=== PATIENT | female | born 1960 | race African-American/Black ===

== ENCOUNTER 2021-10-07 04:30 | Inpatient (IN) | payer MEDICAID, OTHER ==
[~2021-10-07] VITALS: Ht 157.5 cm; Wt 138.0 kg
[2021-10-07 05:11] LABS: Basophils # (auto) 0.1 10 ^3/uL (0-0.2); Basophils % (auto) 1.7 % (0.0-2.0); Eosinophils # (auto) 0.1 10 ^3/uL (0-0.8); Eosinophils % (auto) 1.7 % (0.0-7.0); Hematocrit 49.5 % (36.0-46.0); Hemoglobin 16.8 g/dL (12.2-16.2); Lymphocytes # (auto) 1.1 10 ^3/uL (0.4-5.4); Lymphocytes % (auto) 28.4 % (10.0-50.0); Mean Corpuscular Hemoglobin 29.5 pg (28.0-32.0); Mean Corpuscular Hgb Conc. 33.9 g/dL (32.0-36.0); Mean Corpuscular Volume 86.8 fL (80.0-100.0); Monocytes # (auto) 0.5 10 ^3/uL (0-1.3); Monocytes % (auto) 11.4 % (0.0-12.0); Neutrophils # (auto) 2.3 10 ^3/uL (1.6-8.6); Neutrophils % (auto) 56.8 % (37.0-80.0); Nucleated Red Blood Cells % 0.2 %; Red Blood Cells 5.71 10^6/uL (4.0-5.20)
[2021-10-07 05:27] LABS: INR 1.21 (0.9-1.15); Partial Thromboplastin Time 30.5 sec (23.6-33.0)
[2021-10-07 05:31] LABS: Albumin 3.5 g/dL (3.4-5.0); Calcium 9.2 mg/dL (8.5-10.1); Potassium 3.6 mmol/L (3.5-5.1)
[2021-10-07 05:34] LABS: Bilirubin, Total 0.7 mg/dL (0.2-1.0); Total Protein 8.1 g/dL (6.4-8.2)
[2021-10-07] MEDS ORDERED: ASPirin 81 mg TAB PO ONE (06:00)
[2021-10-07] MEDS ORDERED: BENA40TA8 PO (09:28)
[2021-10-07] MEDS ORDERED: AMLO-496 PO (09:28)
[2021-10-07] MEDS ORDERED: PANT40T PO (09:28)
[2021-10-07] MEDS ORDERED: CLON0.3D4 PO (09:28)
[2021-10-07] MEDS ORDERED: CHLO25TA2 PO (09:28)
[2021-10-07] MEDS ORDERED: SPIR25TA8 PO (09:28)
[2021-10-07] MEDS ORDERED: MONT-8 PO (09:28)
[2021-10-07] MEDS ORDERED: AML5T PO (09:28)
[2021-10-07] MEDS ORDERED: IOHEXOL 350 MG/ML 100ML IJ ONE (09:46)
[2021-10-07] MEDS ORDERED: ENOXAPARIN SOD 150 MG/1 ML SYRINGE SC SCH (10:00)
[2021-10-07] MEDS ORDERED: NITROGLYCERIN 0.4 MG SL TAB SL ONE (10:00)
[2021-10-07] MEDS: IPRATROPIUM BROM 0.5 MG/2.5ML INH SOL NEB SCH ×2 (12:45→18:29)
[2021-10-07] MEDS: ALBUTEROL SULF 2.5 MG/0.5ML(0.5%) NEB SOLN NEB SCH ×2 (12:46→18:29)
[2021-10-07] MEDS ORDERED: MORPHINE SULFATE 4 MG/ML SYR/VIAL IV PRN (15:00)
[2021-10-07] MEDS ORDERED: ALBUTEROL SULF 2.5 MG/0.5ML(0.5%) NEB SOLN NEB PRN (15:15)
[2021-10-07] MEDS: ACETAMINOPHEN 500 MG TAB PO PRN (17:57)
[2021-10-07] MEDS ORDERED: RIVAROXABAN 20 MG TAB PO SCH (18:00)
[2021-10-07 18:36] LABS: Calcium 9.4 mg/dL (8.5-10.1); Potassium 3.5 mmol/L (3.5-5.1)
[2021-10-07] MEDS: FUROSEMIDE 40 MG/4 ML VIAL IV SCH (18:38)
[2021-10-07 18:42] LABS: BUN/Creatinine Ratio 10.4
[2021-10-07 20:40] VITALS: BP 144/83
[2021-10-07] MEDS: MONTELUKAST SODIUM 10 MG TAB PO SCH (21:05)
[2021-10-07] MEDS: cloNIDine HCL 0.1 MG TAB PO SCH (21:05)
[2021-10-07] MEDS: POTASSIUM CHL 10 Meq TABLET PO SCH (21:06)
[2021-10-07] MEDS: ATORVASTATIN 20 MG TAB PO SCH (21:06)
[2021-10-08] MEDS: ACETAMINOPHEN 500 MG TAB PO PRN (00:04)
[2021-10-08] MEDS: ALBUTEROL SULF 2.5 MG/0.5ML(0.5%) NEB SOLN NEB SCH ×4 (00:20→18:54)
[2021-10-08] MEDS: IPRATROPIUM BROM 0.5 MG/2.5ML INH SOL NEB SCH ×4 (00:21→18:54)
[2021-10-08] MEDS: MORPHINE SULFATE INJ 2 MG/ml SYRG IV PRN (03:53)
[2021-10-08 05:00] VITALS: BP 122/61
[2021-10-08] MEDS: FUROSEMIDE 40 MG/4 ML VIAL IV SCH ×2 (05:52→14:30)
[2021-10-08 08:30] VITALS: BP 152/85
[2021-10-08 09:00] VITALS: BP 152/85
[2021-10-08] MEDS: POTASSIUM CHL 10 Meq TABLET PO SCH ×2 (09:51→21:15)
[2021-10-08] MEDS: ASPirin-EC 81 mg tab PO SCH (09:51)
[2021-10-08] MEDS: PANTOPRAZOLE 40 MG TAB PO SCH (09:51)
[2021-10-08] MEDS: cloNIDine HCL 0.1 MG TAB PO SCH ×2 (09:52→21:14)
[2021-10-08] MEDS ORDERED: PNEUMOCOCCAL VACC POLYS 25 MCG/0.5 ML VIAL IM ONE (10:00)
[2021-10-08 12:44] VITALS: BP 153/88
[2021-10-08] MEDS: RIVAROXABAN 20 MG TAB PO SCH (12:50)
[2021-10-08] MEDS: SILDENAFIL CITRATE 20 MG TAB PO SCH ×2 (14:30→21:13)
[2021-10-08 16:36] VITALS: BP 137/79
[2021-10-08] MEDS: MONTELUKAST SODIUM 10 MG TAB PO SCH (21:13)
[2021-10-08] MEDS: ATORVASTATIN 20 MG TAB PO SCH (21:15)
[2021-10-08 22:00] VITALS: BP 144/100
[2021-10-09] VITALS (7 sets, daily range): BP systolic 120–134; BP diastolic 66–92
[2021-10-09] MEDS: ONDANSETRON HCL 4 MG/2 ML VIAL IV PRN (03:42)
[2021-10-09] MEDS: FUROSEMIDE 40 MG/4 ML VIAL IV SCH ×2 (06:44→13:38)
[2021-10-09] MEDS: MORPHINE SULFATE INJ 2 MG/ml SYRG IV PRN (06:44)
[2021-10-09] MEDS: IPRATROPIUM BROM 0.5 MG/2.5ML INH SOL NEB SCH ×4 (06:47→18:00)
[2021-10-09] MEDS: ALBUTEROL SULF 2.5 MG/0.5ML(0.5%) NEB SOLN NEB SCH ×4 (06:48→18:00)
[2021-10-09 07:53] LABS: Basophils # (auto) 0 10 ^3/uL (0-0.2); Lymphocytes # (auto) 1.3 10 ^3/uL (0.4-5.4); Monocytes # (auto) 0.8 10 ^3/uL (0-1.3); Neutrophils # (auto) 2.5 10 ^3/uL (1.6-8.6); Red Cell Distribution Width 16.2 % (11.8-14.3)
[2021-10-09 07:56] LABS: Eosinophils # (auto) 0.1 10 ^3/uL (0-0.8); Eosinophils % (auto) 1.4 % (0.0-7.0); Hematocrit 52.3 % (36.0-46.0); Hemoglobin 18.2 g/dL (12.2-16.2); Lymphocytes % (auto) 27.2 % (10.0-50.0); Mean Corpuscular Hemoglobin 30.5 pg (28.0-32.0); Mean Corpuscular Hgb Conc. 34.8 g/dL (32.0-36.0); Mean Corpuscular Volume 87.5 fL (80.0-100.0); Monocytes % (auto) 16.7 % (0.0-12.0); Neutrophils % (auto) 53.7 % (37.0-80.0); Nucleated Red Blood Cells % 0.3 %; Red Blood Cells 5.98 10^6/uL (4.0-5.20); White Blood Cell 4.7 10^3/uL (4.4-10.8)
[2021-10-09 08:18] LABS: BUN/Creatinine Ratio 19.4; Calcium 9.5 mg/dL (8.5-10.1); Potassium 3.9 mmol/L (3.5-5.1)
[2021-10-09] MEDS: SILDENAFIL CITRATE 20 MG TAB PO SCH ×2 (08:46→20:01)
[2021-10-09] MEDS: ASPirin-EC 81 mg tab PO SCH (12:22)
[2021-10-09] MEDS: PANTOPRAZOLE 40 MG TAB PO SCH (12:22)
[2021-10-09] MEDS: cloNIDine HCL 0.1 MG TAB PO SCH ×2 (12:23→21:34)
[2021-10-09] MEDS: POTASSIUM CHL 10 Meq TABLET PO SCH ×2 (12:23→21:34)
[2021-10-09] MEDS: TRIAMCINOLONE ACET 0.1% TOPICAL CREAM 15GM TOP PRN ×2 (12:27→20:53)
[2021-10-09] MEDS: RIVAROXABAN 20 MG TAB PO SCH (17:31)
[2021-10-09] MEDS: MONTELUKAST SODIUM 10 MG TAB PO SCH (20:01)
[2021-10-09] MEDS: ATORVASTATIN 20 MG TAB PO SCH (21:34)
[2021-10-10] VITALS (8 sets, daily range): BP systolic 108–128; BP diastolic 61–77
[2021-10-10] MEDS: MORPHINE SULFATE INJ 2 MG/ml SYRG IV PRN (01:56)
[2021-10-10] MEDS: FUROSEMIDE 40 MG/4 ML VIAL IV SCH ×2 (05:53→14:32)
[2021-10-10] MEDS: IPRATROPIUM BROM 0.5 MG/2.5ML INH SOL NEB SCH ×4 (06:15→19:12)
[2021-10-10] MEDS: ALBUTEROL SULF 2.5 MG/0.5ML(0.5%) NEB SOLN NEB SCH ×4 (06:15→19:12)
[2021-10-10] MEDS: SILDENAFIL CITRATE 20 MG TAB PO SCH ×2 (08:24→19:57)
[2021-10-10] MEDS: ASPirin-EC 81 mg tab PO SCH (08:25)
[2021-10-10] MEDS: PANTOPRAZOLE 40 MG TAB PO SCH (08:25)
[2021-10-10] MEDS: POTASSIUM CHL 10 Meq TABLET PO SCH ×2 (08:27→22:24)
[2021-10-10] MEDS: cloNIDine HCL 0.1 MG TAB PO SCH ×2 (11:10→22:24)
[2021-10-10] MEDS: RIVAROXABAN 20 MG TAB PO SCH (18:07)
[2021-10-10] MEDS: MONTELUKAST SODIUM 10 MG TAB PO SCH (19:57)
[2021-10-10] MEDS ORDERED: traZODone HCL 50 MG TAB PO SCH (22:00)
[2021-10-10] MEDS: ATORVASTATIN 20 MG TAB PO SCH (22:25)
[2021-10-10] MEDS: TRIAMCINOLONE ACET 0.1% TOPICAL CREAM 15GM TOP PRN (22:59)
[2021-10-11] MEDS: IPRATROPIUM BROM 0.5 MG/2.5ML INH SOL NEB SCH ×4 (00:32→18:46)
[2021-10-11] MEDS: ALBUTEROL SULF 2.5 MG/0.5ML(0.5%) NEB SOLN NEB SCH ×4 (00:32→18:46)
[2021-10-11] MEDS: ONDANSETRON HCL 4 MG/2 ML VIAL IV PRN (03:09)
[2021-10-11 05:00] VITALS: BP 118/73
[2021-10-11] MEDS: FUROSEMIDE 40 MG/4 ML VIAL IV SCH ×2 (05:53→14:16)
[2021-10-11 05:58] LABS: BUN/Creatinine Ratio 18.6; Calcium 8.8 mg/dL (8.5-10.1); Potassium 3.9 mmol/L (3.5-5.1)
[2021-10-11 08:00] VITALS: BP 129/94
[2021-10-11] MEDS: SILDENAFIL CITRATE 20 MG TAB PO SCH (08:30)
[2021-10-11 09:00] VITALS: BP 129/94
[2021-10-11] MEDS: ASPirin-EC 81 mg tab PO SCH (09:54)
[2021-10-11] MEDS: POTASSIUM CHL 10 Meq TABLET PO SCH (09:54)
[2021-10-11] MEDS: cloNIDine HCL 0.1 MG TAB PO SCH (09:54)
[2021-10-11] MEDS: PANTOPRAZOLE 40 MG TAB PO SCH (09:54)
[2021-10-11] MEDS ORDERED: ALB5IS NEB (10:35)
[2021-10-11] MEDS ORDERED: CLON0.1T PO (10:35)
[2021-10-11] MEDS ORDERED: BENA40TA8 PO (10:35)
[2021-10-11] MEDS ORDERED: RIV20T PO (10:35)
[2021-10-11] MEDS ORDERED: FURO40TA4 PO (10:35)
[2021-10-11] MEDS ORDERED: ATOR20TA50 PO (10:35)
[2021-10-11] MEDS ORDERED: TRAZ50TA2 PO (10:35)
[2021-10-11] MEDS ORDERED: SILD20TA PO (10:35)
[2021-10-11 12:42] VITALS: BP 121/85
[2021-10-11 13:00] VITALS: BP 121/85
[2021-10-11 17:00] VITALS: BP 119/75
[2021-10-11] MEDS: RIVAROXABAN 20 MG TAB PO SCH (17:45)
== END 2021-10-11 22:10 | disposition home or self-care (01) | DRG 133 ==
LOC: ER 04:30 → TELE 09:29 → TELE-WESTW 20:13
PROVIDERS: ADMIT Hospitalist; ATTEND Hospitalist
DX: J96.01 Acute respiratory failure with hypoxia (principal); I27.20 Pulmonary hypertension, unspecified; I50.9 Heart failure, unspecified; I11.0 Hypertensive heart disease with heart failure; E66.01 Morbid (severe) obesity due to excess calories; J98.11 Atelectasis; G47.33 Obstructive sleep apnea (adult) (pediatric); Z20.822 Contact with and (suspected) exposure to COVID-19; J44.9 Chronic obstructive pulmonary disease, unspecified; Z79.01 Long term (current) use of anticoagulants; Z80.1 Family history of malignant neoplasm of trachea, bronchus and lung; Z82.49 Family history of ischemic heart disease and other diseases of the circulatory system; Z83.3 Family history of diabetes mellitus; Z86.711 Personal history of pulmonary embolism; Z86.718 Personal history of other venous thrombosis and embolism; Z88.0 Allergy status to penicillin; Z88.5 Allergy status to narcotic agent; Z88.8 Allergy status to other drugs, medicaments and biological substances; Z68.43 Body mass index [BMI] 50.0-59.9, adult
CPT/HCPCS: 36415; 71275; 80048; 80053; 80061; 83036; 83880; 84439; 84443; 84484; 85025; 85379; 85610; 85730; 93005; 93306; 93970; 94640; G0378; J2405